=== PATIENT | male | born 1995 | race Two or more races ===

== ENCOUNTER 2019-12-03 11:17 | Emergency (ER) | payer OTHER ==
[2019-12-03 17:51] LABS: SARS-CoV-2 MS2 Positive; SARS-CoV-2 N Gene Negative; SARS-CoV-2 S Gene Negative; SARS-CoV-2 orf1ab Negative
== END 2019-12-03 12:00 | disposition home or self-care (01) ==
LOC: ERS 11:17
DX: J34.89 Other specified disorders of nose and nasal sinuses (principal); R51 Headache; Z20.828 Contact with and (suspected) exposure to other viral communicable diseases
CPT/HCPCS: 87635; 99283; U0003